=== PATIENT | male | born 1965 | race Caucasian/White ===

== ENCOUNTER 2016-07-09 09:43 | Emergency (ER) | payer MEDICAID ==
[~2016-07-09] VITALS: Ht 170.2 cm; Wt 70.8 kg
[2016-07-09 10:16] VITALS: BP 160/90
--- NOTE | 2016-07-09 11:22 | NUR ---
Patient to bed 7 at this time.
--- NOTE | 2016-07-09 11:34 | NUR ---
51/M PRESENT TO ER C/O RIGHT ANKLE PAIN. PAIN 5/10 ACHING NON-RADIATING. RIGHT ANKLE POS SWELLING, POS REDNESS, <3SEC CAP REFILL AND FULL SENSATION DISTAL TO PAIN, LIMITED ROM. PT STATES HE HAD RT ANKLE SURGERY IN 2012. PT DENIES INJURY OR TRAUMA SINCE YESTERDAY. AAOx4, PERRLA, BREATHING EVEN AND UNLABORED. ERMD NOTIFIED OF PATIENT STATUS.
--- NOTE | 2016-07-09 12:30 | NUR ---
Patient being evaluated by physician at bedside.
--- NOTE | 2016-07-09 12:49 | NUR ---
PT RESTING. VSS; PATIENT POSITIONED FOR COMFORT; HOB ELEVATED; BEDRAILS UP X2; BED DOWN. ER MD MADE AWARE OF PT STATUS.
--- NOTE | 2016-07-09 13:51 | NUR ---
Patient discharged with v/s stable. Written and verbal after care instructions given and explained. Patient alert, oriented and verbalized understanding of instructions. Ambulatory with steady gait. All questions addressed prior to discharge. ID band removed. Patient advised to follow up with PMD. Rx of DOXYCYLINE 100MG AND PREDNISONE 50MG TABLET given. Patient educated on indication of medication including possible reaction and side effects. Opportunity to ask questions provided and answered.
[2016-07-09 13:52] VITALS: BP 132/83
== END 2016-07-09 13:51 | disposition home or self-care (01) ==
LOC: MED 09:43
DX: M19.071 Primary osteoarthritis, right ankle and foot (principal); M77.51 Other enthesopathy of right foot and ankle
CPT/HCPCS: 36415; 73610; 84550; 85025; 93971; 99285; Q0092